=== PATIENT | male | born 1985 | race Caucasian/White ===

== ENCOUNTER 2017-04-19 21:55 | Emergency (ER) | payer BC ==
[~2017-04-19] VITALS: Ht 172.7 cm; Wt 111.7 kg
[2017-04-19 21:59] VITALS: TEMP 36.5; Ht 172.7 cm; Wt 111.7 kg
[2017-04-19] MEDS ORDERED: RIZA10TA18 PO (22:13)
[2017-04-19] MEDS ORDERED: DiphenhydrAMINE HCL 50 MG/ML VIAL IV STA (22:49)
[2017-04-19] MEDS ORDERED: METOCLOPRAMIDE HCL INJ 5 MG/ML 2 ML VIAL IV STA (22:49)
[2017-04-19] MEDS ORDERED: KETOROLAC TROMETHAMINE 30 MG/ML VIAL IV STA (22:49)
[2017-04-19] MEDS ORDERED: SODIUM CHLORIDE 0.9% 1000ML 1,000 ML IV STA ×2 (22:49)
--- NOTE | 2017-04-19 22:56 | EMERGENCY ROOM VISIT NOTE ---
History Report prepared by Maritaibmakenzie: Makenna Justice Under the Supervision of: Dr. Cody Mercedes M.D. First contact with patient: 22:43 Chief Complaint: HEAD PAIN Stated Complaint: HEAD PAIN, NECK PAIN, SOB History of Present Illness The patient is a 31 year old male who presents to the Emergency Room with complaints of a severe headache starting about 5 hours ago. He notes that his headache comes from his neck which is normal for him. The patient has daily migraines but does not follow up with a neurologist or PCP. He notes some shortness of breath followed by numbness in his arms which started 3 hours ago and lasted until he got to the ED. Presently the patient notes neck pain and nausea but denies any fever chills, vision changes or abdominal pain. The patient has a history of migraines. The patient takes maxalt for his migraines but reports they did not help his migraine tonight. He reports some episodes of vomiting and believes he might of brought up the maxalt medication before it was able to take effect. Source of History: patient Onset: 5 hours ago Position: head Symptom Intensity: severe Quality: ache Associated Symptoms: + neck pain, + SOB, + nausea, + vomiting, No fevers, No chills, No abdominal pain Review of Systems See HPI for pertinent positives and negatives. A total of ten systems were reviewed and were otherwise negative. Past Medical & Surgical Medical Problems: (1) Head ache (2) Meningitis Family History Diabetes mellitus Gallbladder disease Heart disease Hypertension Kidney stones Social History Smoking Status: Never Smoker Alcohol Use: none Marital Status: single Occupation Status: employed Current/Historical Medications Scheduled Rizatriptan Benzoate (Maxalt), 10 MG PO Q6 Allergies Coded Allergies: No Known Allergies (Unverified , 04/19/17) Physical Exam Vital Signs Date Time Temp Pulse Resp B/P (MAP) Pulse Ox O2 Delivery O2 Flow Rate FiO2 04/20/17 02:10 72 16 125/66 99 04/19/17 22:43 66 04/19/17 21:59 36.5 75 18 171/91 100 Room Air Physical Exam GENERAL: Awake, alert, uncomfortable-appearing, in no distress HENT: Normocephalic, atraumatic. Oropharynx unremarkable. Dry MM. EYES: Normal conjunctiva. Sclera non-icteric. EOMI, TAM NECK: Supple. No nuchal rigidity. FROM. No JVD. RESPIRATORY: Clear to auscultation. CARDIAC: Regular rate, normal rhythm. Extremities warm and well perfused. Pulses equal. ABDOMEN: Soft, non-distended. No tenderness to palpation. No rebound or guarding. No masses. RECTAL: Deferred. MUSCULOSKELETAL: Chest examination reveals no tenderness. The back is symmetrical on inspection without obvious abnormality. There is no CVA tenderness to palpation. No joint edema. LOWER EXTREMITIES: Calves are equal size bilaterally and non-tender. No edema. No discoloration. NEURO: Normal sensorium. No sensory or motor deficits noted. Cerebellar intact. SKIN: No rash or jaundice noted. Medical Decision & Procedures Medications Administered Medications (Trade) Dose Ordered Sig/Elmer Route Start Time Stop Time Status Last Admin Dose Admin Sodium Chloride 1,000 ml @ 999 mls/hr Q1H1M STAT IV 04/19/17 22:49 04/19/17 23:49 DC 04/19/17 23:02 999 MLS/HR Metoclopramide HCl (Reglan Inj) 10 mg NOW STAT IV 04/19/17 22:49 04/19/17 22:55 DC 04/19/17 23:03 10 MG Diphenhydramine HCl (Benadryl Inj) 25 mg NOW STAT IV 04/19/17 22:49 04/19/17 22:55 DC 04/19/17 23:03 25 MG Ketorolac Tromethamine (Toradol Inj) 30 mg NOW STAT IV 04/19/17 22:49 04/19/17 22:55 DC 04/19/17 23:03 30 MG ED Course 2247: The patient was evaluated in room B11B. A complete history and physical exam was performed. 2249: Toradol Inj 30 mg IV, Benadryl Inj 25 mg IV, Reglan Inj 10 mg IV, Sodium Chloride 1000 ml @ 999 mls/hr IV, Sodium Chloride 1000 ml @ 999 mls/hr IV. 0145: I reevaluated the patient. Discussed results and discharge instructions: He verbalized understanding and agreement. The patient is ready for discharge. Medical Decision I reviewed the patient's past medical history, medications, and the nursing notes as described above. Differential diagnosis: dehydration, electrolyte imbalance, migraine, hyperventilation, anxiety, panic attack The patient is a 31 y/o gentleman with a pmhx of daily migraines on Maxalt who presents to the ED with migraine per HPI. Patient reports progressively worsening migraine and taking his maxalt but then had his typical n/v with his migraine and likely vomited it. Pain became so severe that he began to breath fast and became lighthead with blurred vision and parathesias until mother was able to help him to calm his breathing. On arrival the patient is uncomfortable but in NAD, AFVSS. Neuro intact with normal cerebellar function with finger-to- nose. Patient given migraine cocktail with IVF, reglan, diphenhydramine, toradol with brief akisthesia side effect from reglan but then resolved as diphenhydramine took effect and with ultimate resolution of migraine sx. Patient appreciative. Regarding patient's episode of sob, lightheadedness, blurred vision and parathesias this is classic for hyperventilation, which likely was precipitated by the patient's discomfort after he was unable to take his triptan. Thus, no further evaluation for this indicated given resolution of sx. I emphasized the importance of establishing a pcp given that his migraines are daily, which he and his mother ultimately agreed with. Findings and plan for follow-up reviewed patient. Patient agreeable and d/c'd per discharge instructions. Medication Reconcilliation Current Medication List: was personally reviewed by me Blood Pressure Screening Patient's blood pressure: Elevated blood pressure Blood pressure disposition: Referred to PCP Impression Primary Impression: Migraine Scribe Attestation The scribe's documentation has been prepared under my direction and personally reviewed by me in its entirety. I confirm that the note above accurately reflects all work, treatment, procedures, and medical decision making performed by me. Departure Information Dispostion Home / Self-Care Referrals No Doctor, Assigned (PCP) Forms HOME CARE DOCUMENTATION FORM, IMPORTANT VISIT INFORMATION, WORK / SCHOOL INSTRUCTIONS Patient Instructions ED Headache Migraine, [facility] Additional Instructions Please follow up with and establish a primary care physician for re-evaluation and management of your migraines. Otherwise, your exam did not show signs of an emergent condition at this time. Return to the emergency department for worsening symptoms as described in the accompanying instructions.
[2017-04-20 02:10] VITALS: BP 125/66; PULSE 72; O2SAT 99
== END 2017-04-20 02:11 | disposition home or self-care (01) ==
LOC: C.EDB 21:56
DX: G43.909 Migraine, unspecified, not intractable, without status migrainosus (principal); M54.2 Cervicalgia; R06.02 Shortness of breath